=== PATIENT | male | born 1965 | race Caucasian/White ===

== ENCOUNTER 2025-04-30 09:43 | Outpatient (CLI) | payer OTHER, SELFPAY ==
--- NOTE | ~2025-04-30 | XR_ITS ---
EXAMINATION: [id number], 04/30/2025 9:50 CDT HISTORY: Pain in left knee, no inj, no surg, pain x 2 years COMPARISON: No comparisons available. Findings: No acute fracture or malalignment. No significant degenerative changes. Soft tissues unremarkable. Impression: No acute fracture or malalignment. Reviewed, dictated and finalized at location P. Impression: No acute fracture or malalignment.
== END 2025-04-30 09:44 | disposition home or self-care (01) ==
LOC: GOSHIMG 09:44
PROVIDERS: PCP Nurse Practitioner; Visit Provider Nurse Practitioner
DX: M25.562 Pain in left knee (principal); G89.29 Other chronic pain
CPT/HCPCS: 73560